=== PATIENT | male | born 1990 | race Caucasian/White ===

== ENCOUNTER 2024-12-23 08:44 | Outpatient (CLI) | payer BC, SELFPAY ==
--- NOTE | ~2024-12-23 | US_ITS ---
EXAMINATION: US scrotum doppler DATE: 12/23/2024 09:07 INDICATION: Left testicular pain on and off for years. TECHNIQUE: Grayscale and Doppler ultrasound images of the testes were obtained. COMPARISON: None. FINDINGS: The right testis measures 5.3 x 3.5 x 2.8 cm. The left testis measures 4.6 x 2.9 x 2.2 cm. Left testis is slightly hypoechoic relative to the right. There is less vascular flow in left testis when compared to the right. The right epididymis is normal with normal vascular flow. The left epidid ymis is normal with normal vascular flow. There is no varicocele or hydrocele. IMPRESSION: 1. Left testis is slightly small, hypoechoic, and hypovascular when compared to the right, which may be seen with infarct. Reviewed, dictated and finalized at location B. IMPRESSION: 1. Left testis is slightly small, hypoechoic, and hypovascular when compared t o the right, which may be seen with infarct.
== END 2024-12-23 08:45 | disposition home or self-care (01) ==
LOC: GOSHIMG 08:44
PROVIDERS: PCP Nurse Practitioner Family; Visit Provider Nurse Practitioner Family
DX: R93.813 Abnormal radiologic findings on diagnostic imaging of testicles, bilateral (principal); N50.812 Left testicular pain
CPT/HCPCS: 76870; 93976